=== PATIENT | female | born 1990 | race Caucasian/White ===

== ENCOUNTER 2017-03-15 16:43 | Emergency (ER) | payer OTHER ==
[~2017-03-15] VITALS: Ht 162.6 cm; Wt 56.5 kg
[2017-03-15 16:45] VITALS: BP 113/64; PULSE 93; RESP 16; TEMP 98.6; O2SAT 99
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
[2017-03-15] MEDS ORDERED: ROBA500T PO (17:33)
== END 2017-03-15 17:42 | disposition home or self-care (01) ==
LOC: PHEFT 16:43
DX: S13.4XXA Sprain of ligaments of cervical spine, initial encounter (principal); V49.49XA Driver injured in collision with other motor vehicles in traffic accident, initial encounter; Y92.410 Unspecified street and highway as the place of occurrence of the external cause
CPT/HCPCS: 99283

== ENCOUNTER 2017-03-17 16:35 | Emergency (ER) | payer OTHER ==
[~2017-03-17] VITALS: Ht 162.6 cm; Wt 59.0 kg
[~2017-03-17 16:35] MED LIST: ROBA500T PO
[2017-03-17 16:45] VITALS: BP 116/62; PULSE 78; RESP 17; TEMP 98.6; O2SAT 100
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
[2017-03-17] MEDS ORDERED: TRAM50TA PO (19:02)
== END 2017-03-17 20:00 | disposition home or self-care (01) ==
LOC: PHEFT 16:35
DX: M62.838 Other muscle spasm (principal); M54.17 Radiculopathy, lumbosacral region
CPT/HCPCS: 72040; 72131; 84703